=== PATIENT | male | born 1950 | race Caucasian/White ===

== ENCOUNTER → 2018-10-27 | Outpatient (CLI) | payer MEDICARE, BC ==
[~2018-10-27] MED LIST: AMLODIPINE-ATO1 EAC5 PO; AMLODIPINE-BEN1 EAC3 PO; LIPITOR20 MG PO; LOVENOX SQ; METFORMIN HCL500 MG PO; NYSTATIN PO; WARFARIN SODIU7.5 MG PO; WARFARIN SODIUM4 MG PO; WARFARIN SODIUM5 GM PO; WARFARIN SODIUM5 MG PO; ZETIA10 MG PO
--- NOTE | 2018-10-27 08:04 | Diagnostic Imaging Report ---
EXAMINATION: CT scan of the chest without contrast. TECHNIQUE: Spiral CT images of the chest were performed from the lung apices to the level of the adrenal glands. No intravenous contrast was administered per referring physician request. Coronal and sagittal reformatted images were obtained. COMPARISON: Chest x-ray 05/26/2016 CLINICAL HISTORY:Extensive history of tobacco use DISCUSSION: ABSENCE OF INTRAVENOUS CONTRAST DECREASES SENSITIVITY FOR DETECTION OF FOCAL LESIONS AND VASCULAR PATHOLOGY. LINES/TUBES: None. LUNGS AND AIRWAYS: Upper lobe predominant centrilobular and paraseptal emphysematous changes. 3 mm subsolid nodule medial segment anteriorly within the right upper lobe (series 3 image 63) 3 mm perifissural groundglass nodule laterally within the right middle lobe (series 3 image 70) 3 mm solid juxtapleural nodule laterally within the right middle lobe (series 3 image 78) 2 mm juxtapleural nodule inferior lingula (series 3 image 77) Linear fibrosis in the inferior lingula. Linear opacities in the dependent lower lobes likely reflect subsegmental atelectasis. No consolidations or bronchiectasis. Trachea, mainstem bronchi, and central lobar and segmental bronchi are patent. PLEURA: No pneumothorax or pleural effusions. HEART AND MEDIASTINUM: Visualized portions of the thyroid gland are normal. Pseudocoarctation of the aorta with mild aneurysmal dilatation of the descending thoracic aorta (3.4 cm). Status post aortic valve replacement and aortic root repair. No ectasia of the ascending thoracic aorta. Atherosclerotic calcifications of the [place] coronary arteries. No pericardial effusion. LYMPH NODES: No axillary, hilar, or mediastinal lymphadenopathy. ABDOMEN: Visualized portions of the liver, gallbladder, pancreas, and adrenal glands are normal. Calcification adjacent to the spleen likely represents a lymph node. Gastric wall thickening is probably attributable to underdistention BONES AND SOFT TISSUES: No osseous destructive lesions. Multiple median sternotomy wires. Depression of the superior endplate of L1 is partially visualized and appears unchanged relative to prior chest radiograph 05/26/2016. No focal soft tissue abnormalities. IMPRESSION: Bilateral solid and subsolid indeterminate pulmonary nodules measuring less than 4 mm in size. Follow-up CT scan of the chest should be obtained in one year to assess for stability in this high risk patient. Status post aortic valve replacement and aortic root repair. Mild aneurysmal dilatation of the descending thoracic aorta (3.4 cm). Atherosclerotic calcifications of the coronary arteries. Emphysema. Signed by: Dr. Pollo Nichols M.D. on 10/27/2018 8:01 AM
== END ==
LOC: CT 07:01
PROVIDERS: ATTEND Family Medicine
DX: R91.8 Other nonspecific abnormal finding of lung field (principal); F17.210 Nicotine dependence, cigarettes, uncomplicated
CPT/HCPCS: 71250

== ENCOUNTER → 2019-03-21 | Outpatient (CLI) | payer MEDICARE, BC ==
--- NOTE | 2019-03-21 11:16 | Diagnostic Imaging Report ---
TECHNIQUE: Magnetic resonance imaging of the RIGHT KNEE was performed WITHOUT injected contrast. HISTORY: Right knee pain, evaluate for internal arrangement COMPARISON: None available. FINDINGS: LIGAMENTS AND TENDONS: ACL: Intact PCL: Intact Collateral ligaments: Intact Iliotibial band: Unremarkable Popliteal tendon: Intact Extensor mechanism: Intact JOINT: Menisci: Medial: Degenerative signal Lateral: Degenerative signal with linear horizontal signal involving the peripheral body not extending to the articular surface. Coronal image 15. Degenerative signal within the anterior horn. Articular Cartilage: Medial Compartment: No focal defect. Lateral Compartment: No focal defect. Patellofemoral Compartment: No focal defect. Joint Fluid: The amount of fluid within the joint is within physiologic limits. BONE: No focal or infiltrative bone marrow replacing abnormality. No acute fracture. SOFT TISSUES: Otherwise, unremarkable. IMPRESSION: Degenerative menisci with possible lateral meniscus peripheral horizontal tear (not extending to the articular surface) Signed by: Dr. Jose Carlos Miles M.D. on 03/21/2019 11:12 AM
== END ==
LOC: MRI 09:04
PROVIDERS: ATTEND Family Medicine
DX: M23.91 Unspecified internal derangement of right knee (principal)

== ENCOUNTER → 2020-01-03 | Outpatient (CLI) | payer MEDICARE, BC ==
--- NOTE | 2020-01-03 10:18 | Diagnostic Imaging Report ---
EXAM: CT Chest WITHOUT intravenous contrast 01/03/2020 9:58 AM INDICATION: Pulmonary nodule COMPARISON: Chest CT 10/27/2018 TECHNIQUE: Chest was scanned utilizing a multidetector helical scanner from the lung apex through the level of the adrenal glands without administration of IV contrast. Coronal and sagittal reformations were obtained. Low-dose protocol was performed. IV CONTRAST: None RADIATION DOSE: Total DLP: 258 mGy*cm. Dose modulation, iterative reconstruction, and/or weight based adjustment of the mA/kV was utilized to reduce the radiation dose to as low as reasonably achievable. COMPLICATIONS: None FINDINGS: LINES/ TUBES: None. LUNGS AND AIRWAYS: The central airways are patent. Moderate upper lobe predominant centrilobular emphysema. Previous identified micronodules appear stable. No new suspicious pulmonary nodules. PLEURA: The pleural spaces are clear. HEART AND MEDIASTINUM: The thyroid gland is normal. No mediastinal, hilar or axillary lymphadenopathy. The heart is normal in size.. There is no pericardial effusion. Atherosclerotic calcifications involve the tortuous thoracic aorta, coronary arteries, and proximal great vessels. Unchanged pseudocoarctation of the aorta with mild dilatation of the descending thoracic aorta (3.2 cm). Status post aortic valve replacement and aortic root repair. UPPER ABDOMEN: No acute findings in the upper abdomen. BONES: No acute osseous injury. Sternotomy wires in place. SOFT TISSUES: Unremarkable. IMPRESSION: Unchanged pulmonary micronodules. No new suspicious pulmonary nodules. No further follow-up imaging is necessary. Moderate centrilobular emphysema. Signed by: Rakel Falcon MD on 01/03/2020 10:14 AM
== END ==
LOC: CT 09:29
PROVIDERS: ATTEND Specialist
DX: R91.8 Other nonspecific abnormal finding of lung field (principal)
CPT/HCPCS: 71250

== ENCOUNTER → 2020-08-27 | Outpatient (CLI) | payer MEDICARE, BC ==
[~2020-08-27] MED LIST changes: +GADOBENATE DIMEGLUMINE 1 ML IV ONE; +SODIUM CHLORIDE 0.9% 50ML 50 ML ONE
[2020-08-27 08:12] LABS: BLOOD UREA NITROGEN 18 mg/dL (7-26); BUN/CREATININE RATIO 21 (6-25); CREATININE, SERUM 0.87 mg/dL (0.72-1.25); EST GLOMERULAR FILTRATION RATE > 60 ML/MIN (60-)
== END ==
LOC: MRI 06:44
PROVIDERS: ATTEND Family Medicine
DX: K86.9 Disease of pancreas, unspecified (principal)
CPT/HCPCS: 36415; 74183; 82565; 84520; A9577